=== PATIENT | female | born 1975 | race Caucasian/White ===

== ENCOUNTER 2024-10-23 17:17 | Emergency (ER) | payer OTHER, SELFPAY ==
[2024-10-23 17:21] VITALS: BP 135/94
[2024-10-23 17:49] LABS: Hematocrit 39.4 % (37.0-47.0); Hemoglobin 13.2 g/dL (12.0-16.0); Mean Corp Hgb Conc. 33.5 g/dL (33.0-37.0); Mean Corpuscular Volume 88.5 fL (81.0-99.0); Nucleated Red Blood Cells % 0 %; Platelet Count 254 10^3/uL (130-400); Red Cell Dist. Width 12.4 % (11.5-14.5)
[2024-10-23 18:07] LABS: HCG, Serum Qualitative Screen Negative
[2024-10-23 18:17] LABS: ALT (SGPT) 19 U/L (0-35); AST (SGOT) 28 U/L (14-36); Albumin 5.3 g/dl (3.5-5.0); Alkaline Phosphatase 94 U/L (38-126); Blood Urea Nitrogen 12 mg/dl (7-17); Calcium 10.2 mg/dl (8.4-10.2); Carbon Dioxide 25 mmol/L (22-30); Chloride 103 mmol/L (98-107); Glucose 105 mg/dl (70-99); Lipase 96 U/L (23-300); Potassium 4.9 mmol/L (3.5-5.1); Sodium 138 mmol/L (135-145); Total Protein 8.5 g/dl (6.3-8.2); eGFR > 60.00
[2024-10-23 21:00] VITALS: BMI 30.4
[2024-10-23 21:04] VITALS: BP 131/80
[2024-10-23 21:20] LABS: Urine Character Clear (Clear)
[2024-10-23 21:25] LABS: Urine Squamous Cell >30 /LPF (Few)
[2024-10-23] MEDS: NSS 1000 IV (21:26)
[2024-10-23] MEDS: ZOFRAN 4 MG IV (21:28)
[2024-10-23 21:57] LABS: COVID-19 Antigen Negative (Negative)
[2024-10-23 22:00] VITALS: BP 134/86
--- NOTE | 2024-10-23 22:40 | ED.GENMED ---
History of Present Illness
General
Chief Complaint: Abdominal Symptoms
Source: patient
Exam Limitations: none
Time Seen by Provider: 10/23/24 20:59
Nursing documentation reviewed up to this point in time: agreed with
History of Present Illness
History of Present Illness:
Patient is a 48-year-old female history hypothyroid who presents to the emergency department with intractable nausea/vomiting since last night. Patient states she injected her first dose of semaglutide last night around 8 PM and began vomiting
around 11:30 PM. She has had intractable nausea, vomiting since. She has been unable to tolerate any oral intake with food or liquid and feels very dehydrated and weak. She has had subjective fever. She denies any abdominal pain. No dysuria or
urinary frequency. No back pain.
Of note�patient states she was taking Zepbound for many months however stopped this past June due to insurance coverage. She recently was able to acquire semaglutide through a compound pharmacy without a prescription. She believes that she may
have injected a dose too high last night.
No known sick contacts.
Review of Systems
Review of Systems
Allergies reviewed?: Yes
All Other Systems: ROS reviewed and negative except as documented in HPI and ROS
Phy Exam
Physical Exam
Physical Exam:
Vitals: Hypertensive, otherwise vital signs stable. Afebrile
General: Patient is in no distress.
Skin: Warm and dry, no rashes or lesions
Head: Normocephalic, atraumatic
Eyes: Sclera nonicteric.
Throat: Dry mucous membranes. Protecting airway
Neck: Normal ROM
Cardiac: Regular rate and rhythm, no murmurs.
Pulm: Normal respiratory effort, no wheezes, rales, rhonchi heard on exam
Abdomen: Abdomen soft and nontender. No rebound tenderness or guarding. No CVA tenderness
Extremities: No evidence of cyanosis or edema. 2+ palpable DP pulses bilaterally
Neuro: AAOx3. Grossly intact.
Psychiatric: Normal affect.
Course
Orders/Labs/Results
Orders:
Orders
10/23/24 17:25
Test Result ONCE
10/23/24 17:39
Complete Blood Count/With Diff Urgent
Comprehensive Metabolic Panel Urgent
HCG, Serum Qualitative Screen Urgent
Comment: Notify provider if positive test present
Lipase Urgent
10/23/24 21:11
Urinalysis Reflex To Culture Urgent
Date Specimen was Collected: 10/23/24
Time Specimen was Collected: 21:03
Urine Microscopic Reflex Cult Urgent
Urine Culture Urgent
LATOYA Source: U
Specimen Description:
Date Specimen was Collected: 10/23/24
Time Specimen was Collected: 21:03
10/23/24 21:23
0.9% Sodium Chloride 1000 ml [Nss] 1,000 ml IV BOLUS
10/23/24 21:24
Ondansetron Injectable [Zofran] 4 mg IV NOW STA
10/23/24 21:31
COVID-19 Antigen Urgent
Source: Nasal Swab
INF RAPID [Influenza A+B Rapid Molecular] Urgent
LATOYA Source: Nasal Swab
Specimen Description:
Abnormal Lab Results
10/23/24 10/23/24
17:39 21:11
Absolute Neuts (auto) 8.4 H 10^3/uL
(1.4-6.5)
Neutrophils % 81.5 H %
(42.2-75.2)
Lymphocytes % 14.3 L %
(20.5-51.1)
Glucose 105 H mg/dl
(70-99)
Total Protein 8.5 H g/dl
(6.3-8.2)
Albumin 5.3 H g/dl
(3.5-5.0)
Urine Ketones 3+ A
(Negative)
Ur Occult Blood Reflex 2+ A
(Negative)
Leukocyte Esterase Rfl 1+ A
(Negative)
Urine RBC 3-6 A /HPF
(0-2)
Urine Bacteria (Reflex) Moderate A
(Negative)
Urine Albumin (Reflex) 2+ A
(Neg - Trace)
10/23/24 17:39
10/23/24 17:39
Vital Signs
Initial and Last Documented VS:
Initial Vital Signs
Temp Pulse Resp BP Pulse Ox
98.4 F 99 18 135/94 97
10/23/24 17:21 10/23/24 17:21 10/23/24 17:21 10/23/24 17:21 10/23/24 17:21
Last Documented Vital Signs
Temp Pulse Resp BP Pulse Ox
98.2 F 90 14 138/85 98
10/23/24 21:14 10/23/24 23:00 10/23/24 23:00 10/23/24 23:00 10/23/24 23:00
MDM/Problems Addressed
Differential Diagnosis Includes:
Not limited to: Medication side effect, viral gastroenteritis, pancreatitis, cholecystitis, bowel obstruction, etc.
MDM/Problems Addressed:
48-year-old female presenting with intractable nausea and vomiting after injection of semiglutide last night. No fevers, abdominal pain, diarrhea, or urination symptoms. No sick contacts.
Patient has used Zepbound in the past however discontinued this a few months ago and was able to obtain semiglutide through a compound pharmacy with first dose being last night. Symptoms have improved mildly since arriving to ED. Vitals as above �
patient afebrile. On exam � patient appears dry, however in no distress. She is nontoxic appearing. Abdomen is soft without any areas of focal tenderness. Cardio/pulmonary assessment unremarkable.
Differential includes medication side effects from semiglutide versus viral gastroenteritis. Other possibilities include cholecystitis, pancreatitis, etc.
Prior to my evaluation � basic labs were sent without acute abnormalities. No leukocytosis or elevation in LFTs. Lipase normal.
Relatively low suspicion for acute intra-abdominal infection given patient is afebrile without leukocytosis and benign abdominal exam. Will give IV fluids, Zofran, PO challenge. Will check viral swabbs.
Update: viral swabs negative. Patient received 1 L of IV fluids and has been able to tolerate a cup of sara sharita as well as crackers. She has had no episodes of vomiting since my initial evaluation. Ultimately � suspect side effect from
semiglutide. At this point � feel stable for discharge home with primary care f/u. Discussed repeat UA to ensure microscopic hematuria resolves. Advised to discontinue any further injections until cleared by primary care. Return precautions
discussed.
Chronic conditions affecting care:
N/A
Acute Exacerbation and/or Progression of Chronic Illness:
N/A
*Pulse Oximetry
SaO2: 99
Oxygen Mode of Delivery: Room air
Patient hypoxic: no
*EKG
Interpreted by ED Provider?: NA
*Container Repairer Interpretation
Rate: normal
Interpretation: normal
Heart Rate: 92
Rhythm: sinus
*Critical Care Note
Total Time (30-74mins, 75-104mins- exclusive of procedures): Not Applicable
ED Attending Note
-
Portions of this chart may have been created with voice recognition software.� Occasional wrong word or��sound alike� substitutions may have occurred due to the inherent limitations of voice recognition software.
Discharge Plan
Departure
Patient Disposition: Home (Routine Discharge)
Date of Disposition: 10/23/24
Time of Disposition: 23:10
Patient with high blood pressure during this ER visit?: Yes
Condition: Good
Covid-19: Negative COVID-19
Discharge Problem:
Nausea & vomiting
Instructions: Dehydration, Adult (DC), Nausea and Vomiting, Adult (DC), BLOOD PRESSURE
Prescriptions:
New
ondansetron 4 mg tablet,disintegrating
4 mg PO Q8H PRN (Reason: nausea and vomiting) Qty: 7 0RF
No Action
multivitamin Tablet
1 tab PO DAILY
levothyroxine 100 mcg Tablet
100 mcg PO DAILY
Referrals:
Sushila Mccurdy DO [Family Provider, Family Practice] - Follow up in 5-7 days
Activity Restrictions/Additional Instructions:
RETURN TO THE EMERGENCY DEPARTMENT ANY FEVER, CHILLS, INTRACTABLE NAUSEA/VOMITING, ABDOMINAL PAIN, SIGNS OF SEVERE DEHYDRATION, WORSENING IN CURRENT SYMPTOMS, OR ANY OTHER CONCERNS
- You came to the emergency department with concerns of persistent nausea and vomiting. This may be secondary to semaglutide. You received IV fluids and IV Zofran.
- Please stay well-hydrated at home. You can take Zofran with any persistent nausea. Avoid any further injections of semaglutide until cleared by your primary care doctor.
- Follow-up with your primary care doctor for further evaluation/management and to ensure that your symptoms improve
Monitor your symptoms closely and return to the emergency department with any acute worsening/new symptoms or any other concerns
Interventions
Interventions:
*Risk Screen - Suicide Last Done: 10/23/24 17:21
*General Assessment Last Done: 10/23/24 21:16
*Neglect/Abuse Screening Last Done: 10/23/24 21:16
*ED- Fall Risk Assessment Last Done: 10/23/24 21:16
*ED COVID-19 Vaccine History Last Done: 10/23/24 21:16
*Nursing Disposition Last Done: 10/23/24 23:37
AP-Ljnoxk-Sxeijbvklr Assessment Last Done: 10/23/24 21:18
Discharge Date and Time
Discharge Date/Time: 10/23/24 23:38
Print Language: BULGARIAN
[2024-10-23 23:00] VITALS: BP 138/85
== END 2024-10-23 23:38 | disposition home or self-care (01) ==
LOC: EMR 17:17
PROVIDERS: Physician Assistant; Student in an Organized Health Care Education/Training Program; EMERGENCY PHYSICIAN Emergency Medicine; FAMILY PHYSICIAN Family Medicine
DX: R11.2 Nausea with vomiting, unspecified (principal); E03.9 Hypothyroidism, unspecified; Z11.52 Encounter for screening for COVID-19
CPT/HCPCS: 96374; 96361; 99284; 80053; 81003; 81015; 83690; 84703; 85025; 87086; 87502; 87811